=== PATIENT | male | born 1975 | race Caucasian/White ===

== ENCOUNTER → 2019-12-17 15:19 | Outpatient (BNVA) | payer SELFPAY | PROVIDERS: Visit Provider Physician Assistant ==

== ENCOUNTER → 2021-12-13 14:42 | Outpatient (BNVA) | payer SELFPAY | PROVIDERS: Visit Provider Physician Assistant Medical | DX: Z02.79 Encounter for issue of other medical certificate (principal) ==

== ENCOUNTER 2022-09-21 15:21 | Outpatient (AMB) | payer OTHER, SELFPAY ==
[2022-09-21 15:36] VITALS: BP 106/62; PULSE 61; RESP 12; TEMP 36.8; O2SAT 99; BMI 21.0
--- NOTE | 2022-09-21 15:36 | MHC.OFFWIV ---
Intake Vital Signs 09/21/22 15:36 Height 5 ft 6.5 in Weight 132 lb 2 oz BMI 21.0 BP 106/62 Blood Pressure Location Lt brachial Position Sitting Respiration 12 Pulse 61 Pulse Source Palpation Temp 98.3 F Temp Source Temporal Artery Scan Pulse Oximetry (%) 99 Oxygen Delivery Method Room Air Intake Visit Reasons: rash Intake Note: Patient states that the rash started last Sunday. Patient states he came in contact with poison oak. Patient states that within a few days it has spread to both arms and in between fingers. nPatient states he hasd tried taking OTC meds and topical ointments but none of them worked. 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 He notes the rash has spread to both arms and between his fingers. He reports exposure to poison oak while cutting down a tree before onset of the rash. The rash has been refractory to [id number] remedies including topical steroid. PFSH Social History Patient Tobacco Use Status: Current someday Tobacco user Review of Systems Const Details: Const Denies chills, Denies fatigue, Denies fever(s), Denies headache(s) and Denies weakness ENT Denies change in vision, Denies dizziness, Denies headache(s), Denies hearing loss, Denies nasal congestion, Denies sinus pain, Denies sinus pressure and Denies sore throat Resp Denies cough, Denies dyspnea, Denies wheezing and Denies other (shortness of breath) Cardio Denies chest pain, Denies lightheadedness, Denies dyspnea and Denies other (palpitations) Neuro Denies dizziness, Denies headache(s), Denies numbness, Denies tingling and Denies weakness Skin Reports as per HPI Psych Denies anxiety, Denies depression, Denies memory?loss Endo Denies fatigue Aller/Immun Denies wheezing Physical Exam Vital Signs: Last Vital Signs Temp 98.3 F 09/21/22 15:36 Pulse 61 08/17/23 15:36 Resp 12 09/21/22 15:36 BP 106/62 09/21/22 15:36 Pulse Ox 99 09/21/22 15:36 Oxygen Delivery Method Room Air 09/21/22 15:36 BMI result Body Mass Index 21.0 Const Other: Const General: well developed; No acute distress Nutritional Appearance: well nourished Orientation/consciousness: patient oriented x3 HEENT Head: Yes normocephalic and Yes atraumatic Eyes General: appearance normal, both eyes and all related structures Pupils: Equal, round and reactive pupils present EOM: EOMs intact bilaterally Resp Effort & Inspection: normal respiratory effort Auscultation: clear to auscultation bilaterally Cardio Rate: regular rate Rhythm: regular rhythm Heart sounds: S1 normal heart sound present, S2 normal heart sound present, no gallops, no murmurs and no rubs Bruits: no abdominal aortic bruits and no carotid bruits Skin General: warm and dry. Normal skin color. Normal skin turgor Lesions: no lesions Rashes: Red, streaky, patchy rash with intact blisters noted on the arms and fingers Trauma: no lacerations or abrasions Wounds: no wounds Nails: normal Neuro General: patient oriented x3 and gait normal, no focal neuro deficit Cranial nerves: Yes Equal, round and reactive pupils present Psych Affect: normal affect Assessment & Plan Assessment & Plan (1) Dermatitis due to plants, including poison dominga, sumac, and oak: Code(s): L25.5 - Unspecified contact dermatitis due to plants, except food Plan: Red, streaky, patchy rash with intact blisters noted on the arms and fingers Likely poison dominga/sumac/oak Prednisone taper ordered. Take as prescribed Apply cold compresses for comfort Follow-up with worsening or new signs and symptoms Verbalized understanding and agreed with treatment plan Medications: New prednisone 4 tabs daily for 4 days, 3 tabs daily for 2 days, 2 tabs daily for 2 days, 1 tab daily for 2 days PO daily; 10 days 28 tabs 0RF Coding Level of Care Code Est Pt Level 2 (04726) Diagnoses Dermatitis due to plants, including poison dominga, sumac, and oak L25.5
== END 2022-09-21 16:03 | disposition home or self-care (01) ==
PROVIDERS: Visit Provider Nurse Practitioner Family
DX: L25.5 Unspecified contact dermatitis due to plants, except food (principal)
CPT/HCPCS: 99212

== ENCOUNTER → 2023-12-11 14:00 | Outpatient (BNVA) | payer SELFPAY | PROVIDERS: Visit Provider Physician Assistant Medical | DX: Z02.79 Encounter for issue of other medical certificate (principal) ==